=== PATIENT | male | born 1960 | race American Indian/Alaskan Native ===

== ENCOUNTER 2021-12-01 16:01 | Observation (INO) | payer MEDICARE ==
[2021-12-01] MEDS ORDERED: BUTALB/ACETAMINOPHEN/CAFFEINE TAB PO ONE (17:32)
[2021-12-01] MEDS ORDERED: fentaNYL 100 MCG/2 ML INJ IV ONE (17:32)
[2021-12-01] MEDS ORDERED: METOCLOPRAMIDE 10 MG/2 ML INJ IV ONE (17:32)
[2021-12-01] MEDS ORDERED: MECLIZINE 25 MG TAB PO ONE (17:33)
--- NOTE | 2021-12-01 17:46 | Emergency Department Report ---
HPI - HPI HPI: Room 18 Patient is a 61-year-old male present with a chief complaint of headache nausea vomiting. Patient states for the past 2.5 days he has had a constant headache and intractable nausea vomiting. Patient denies any preceding trauma. Patient states his headache was frontal initially but now has become occipital. Patient denies abdominal pain. Patient states his last bowel movement occurred ye sterday and was within normal limits. Patient complains of some chest discomfort when he coughs but currently denies chest discomfort. Patient states she has had dizziness intermittently. Patient currently gives his headache a score of 10/10. Patient denies preceding trauma. Patient states approximate 4 to 5 years ago he would have frequent headaches (every other week) but that has since improved. Patient states he's never seen a neurologist about his headaches. <KYRA ONEAL - Last Filed: 12/01/21 19:21> <LAI ENRIQUEZ - Last Filed: 12/01/21 20:39> - General Chief Complaint: Headache Time Seen by Provider: 12/01/21 17:21 ED Past Medical Hx - Past Medical History Hx Hypertension: Yes Hx Diabetes: Yes Additional medical history: Back pain - Surgical History Additional Surgical History: Back surgery, knee surgery, left hand surgery - Family History Family history: no significant - Social History Smoking Status: Never Smoker Substance Use Type: None (Denies illicit drug use), Alcohol (Rarely) <KYRA ONEAL - Last Filed: 12/01/21 19:21> <LAI ENRIQUEZ - Last Filed: 12/01/21 20:39> - Medications Home Medications: Home Medications Medication Instructions Recorded Confirmed Last Taken Type AtorvaSTATin [Lipitor] 20 mg PO DAILY 03/28/15 12/01/21 11/28/21 History Fluticasone [Flonase] 1 spray NS QDAY 03/28/15 12/01/21 11/28/21 History Montelukast Sodium [Singulair] 10 mg PO QDAY 03/28/15 12/01/21 11/28/21 History Tadalafil [Cialis] 2.5 mg PO QDAY 03/28/15 03/28/15 11/28/21 History Amlodipine Besylate/Benazepril 5 - 10 mg PO QDAY 12/01/21 12/01/21 11/28/21 History [Lotrel 5-10 mg] Butalb/Acetamin/Caff 50-325-40 2 tab PO Q8HR PRN #20 tablet 12/01/21 Unknown Rx [Fioricet 50-325-40] Insulin Glargine [Lantus VIAL] 30 units SUB-Q QHS 12/01/21 12/01/21 11/28/21 History Januvia 50 mg PO QDAY 12/01/21 12/01/21 11/28/21 History Meloxicam [Mobic] 15 mg PO QDAY 12/01/21 12/01/21 11/28/21 History Metoclopramide [Reglan] 10 mg PO TID #20 tab 12/01/21 Unknown Rx Naproxen 500 mg PO BID 12/01/21 12/01/21 11/28/21 History Rosuvastatin Calcium 20 mg PO QDAY 12/01/21 12/01/21 11/28/21 History traMADoL [Ultram 50 MG tab] 50 mg PO QDAY 12/01/21 12/01/21 11/28/21 History ED Review of Systems ROS: Stated complaint: VERTIGO,NAUSEA,HEADACHE,HYPERGLYCEMIA Other details as noted in HPI Constitutional: denies: fever Eyes: denies: eye pain ENT: denies: throat pain Respiratory: cough Cardiovascular: chest pain Endocrine: no symptoms reported Gastrointestinal: nausea, vomiting. denies: diarrhea, constipation Genitourinary: denies: dysuria Musculoskeletal: denies: back pain Neurological: headache, vertigo <KYRA ONEAL - Last Filed: 12/01/21 19:21> ROS: Stated complaint: VERTIGO,NAUSEA,HEADACHE,HYPERGLYCEMIA Other details as noted in HPI <LAI ENRIQUEZ - Last Filed: 12/01/21 20:39> Physical Exam - Physical Exam Vital Signs: Vital Signs 12/01/21 12/01/21 12/01/21 16:07 17:06 17:11 Temperature 99.4 F Pulse Rate 96 H 85 Respiratory 16 16 12 Rate Blood Pressure 181/93 [Left] O2 Sat by Pulse 97 98 99 Oximetry 12/01/21 17:14 Temperature Pulse Rate 83 Respiratory 12 Rate Blood Pressure 146/92 [Left] O2 Sat by Pulse 99 Oximetry Physical Exam: GENERAL: The patient is well-developed well-nourished male lying on stretcher not appearing to be in acute distress. [] HEENT: Normocephalic. Atraumatic. Extraocular motions are intact. Patient has moist mucous membranes. No nystagmus NECK: Supple. No meningitic signs are noted. Trachea midline CHEST/LUNGS: Clear to auscultation. There is no respiratory distress noted. HEART/CARDIOVASCULAR: Regular. There is no tachycardia. There is no gallop rub or murmur. ABDOMEN: Abdomen is soft, nontender. Patient has normal bowel sounds. There is no abdominal distention. SKIN: There is no rash. There is no edema. There is no diaphoresis. NEURO: The patient is awake, alert, and oriented. The patient is cooperative. The patient has no focal neurologic deficits. The patient has normal speech. Cranial nerves II through XII grossly intact. No dysmetria noted with [id number] bilaterally. GCS 15 MUSCULOSKELETAL: There is no evidence of acute injury. <KYRA ONEAL - Last Filed: 12/01/21 19:21> - Physical Exam Vital Signs: Vital Signs 12/01/21 12/01/21 12/01/21 16:07 17:06 17:11 Temperature 99.4 F Pulse Rate 96 H 85 Respiratory 16 16 12 Rate Blood Pressure Blood Pressure 181/93 [Left] O2 Sat by Pulse 97 98 99 Oximetry 12/01/21 12/01/21 12/01/21 17:14 17:16 17:30 Temperature Pulse Rate 83 88 85 Respiratory 12 17 18 Rate Blood Pressure 154/134 Blood Pressure 146/92 [Left] O2 Sat by Pulse 99 97 99 Oximetry 12/01/21 12/01/21 12/01/21 17:46 18:00 18:26 Temperature Pulse Rate 88 82 Respiratory 16 16 Rate Blood Pressure 154/134 163/98 163/98 Blood Pressure [Left] O2 Sat by Pulse 97 98 96 Oximetry 12/01/21 12/01/21 12/01/21 18:30 18:46 19:25 Temperature 98.5 F Pulse Rate 85 88 76 Respiratory 17 14 15 Rate Blood Pressure 163/98 163/98 Blood Pressure 160/98 [Left] O2 Sat by Pulse 97 98 96 Oximetry <LAI ENRIQUEZ - Last Filed: 12/01/21 20:39> ED Course Vital Signs 12/01/21 12/01/21 12/01/21 16:07 17:06 17:11 Temperature 99.4 F Pulse Rate 96 H 85 Respiratory 16 16 12 Rate Blood Pressure 181/93 [Left] O2 Sat by Pulse 97 98 99 Oximetry 12/01/21 17:14 Temperature Pulse Rate 83 Respiratory 12 Rate Blood Pressure 146/92 [Left] O2 Sat by Pulse 99 Oximetry - Reevaluation(s) Reevaluation #1: 12/01/21 19:16 Patient states headache has improved significantly status post medication. Patient updated on CT results. Awaiting labs <KYRA ONEAL - Last Filed: 12/01/21 19:21> Vital Signs 12/01/21 12/01/21 12/01/21 16:07 17:06 17:11 Temperature 99.4 F Pulse Rate 96 H 85 Respiratory 16 16 12 Rate Blood Pressure Blood Pressure 181/93 [Left] O2 Sat by Pulse 97 98 99 Oximetry 12/01/21 12/01/21 12/01/21 17:14 17:16 17:30 Temperature Pulse Rate 83 88 85 Respiratory 12 17 18 Rate Blood Pressure 154/134 Blood Pressure 146/92 [Left] O2 Sat by Pulse 99 97 99 Oximetry 12/01/21 12/01/21 12/01/21 17:46 18:00 18:26 Temperature Pulse Rate 88 82 Respiratory 16 16 Rate Blood Pressure 154/134 163/98 163/98 Blood Pressure [Left] O2 Sat by Pulse 97 98 96 Oximetry 12/01/21 12/01/21 12/01/21 18:30 18:46 19:25 Temperature 98.5 F Pulse Rate 85 88 76 Respiratory 17 14 15 Rate Blood Pressure 163/98 163/98 Blood Pressure 160/98 [Left] O2 Sat by Pulse 97 98 96 Oximetry <LAI ENRIQUEZ - Last Filed: 12/01/21 20:39> ED Medical Decision Making - EKG Data -: EKG Interpreted by Me EKG shows normal: sinus rhythm Rate: normal - EKG Data When compared to previous EKG there are: previous EKG unavailable Interpretation: other (No ischemic changes seen) - Radiology Data Radiology results: report reviewed (Chest x-ray, CT head), image reviewed (Chest x-ray, CT head) interpreted by me: Chest x-ray-no definite focal infiltrate, no pneumothorax [address] [address] XRay Report Signed Patient: VIET MOYER MR#: [id number] : 1960 Acct:[id number] Age/Sex: 61 / M ADM Date: 12/01/21 Loc: ED Attending Dr: Ordering Physician: KYRA ONEAL MD Date of Service: 12/01/21 Procedure(s): XR chest 1V ap Accession Number(s): [id number] cc: KYRA ONEAL MD Fluoro Time In Minutes: CHEST 1 VIEW INDICATION / CLINICAL INFORMATION: Chest discomfort, cough. FINDINGS: SUPPORT DEVICES: None. HEART / MEDIASTINUM: No significant abnormality. LUNGS / PLEURA: No significant pulmonary or pleural abnormality. No pneumothorax. ADDITIONAL FINDINGS: No significant additional findings. IMPRESSION: 1. No acute findings. Signer Name: Ashwin Chaudhari MD Signed: 12/01/2021 5:59 PM Workstation Name: [id number] Transcribed By: BC Dictated By: Ashwin Chaudhari MD Electronically Authenticated By: Ashwin Chaudhari MD Signed Date/Time: 12/01/211758 DD/ 57 TD/TT: [address] [address] Cat Scan Report Signed Patient: VIET MOYER MR#: [id number] : 1960 Acct:[id number] Age/Sex: 61 / M ADM Date: 12/01/21 Loc: ED Attending Dr: Ordering Physician: KYRA ONEAL MD Date of Service: 12/01/21 Procedure(s): CT head/brain wo con Accession Number(s): [id number] cc: KYRA ONEAL MD CT BRAIN: 12/01/2021 INDICATION / CLINICAL INFORMATION: Headache, dizziness. COMPARISON: None available. FINDINGS: BRAIN/INTRACRANIAL STRUCTURES: Unenhanced CT images of the brain demonstrate no evidence of acute abnormality. Ventricles and sulci are normal in size and shape for a patient of this age. There is no evidence of acute ischemic injury, hemorrhage, or mass. There are no abnormal extra- axial fluid collections. Atherosclerotic vascular calcifications are present in the distal internal carotid arteries and vertebral arteries. EXTRACRANIAL STRUCTURES: Unremarkable. IMPRESSION: No acute abnormality. All CT scans at this location are performed using dose reduction to ALARA by means of automated exposure control. Signer Name: Steve Adams MD Signed: 12/01/2021 7:06 PM Workstation Name: [id number] Transcribed By: IRIS Dictated By: Steve Adams MD Electronically Authenticated By: Steve Adams MD Signed Date/Time: 12/01/211905 DD/ 05 TD/TT: - Differential Diagnosis Migraine, intracranial mass, ICH <KYRA ONEAL - Last Filed: 12/01/21 19:21> - Lab Data Result diagrams: 12/01/21 18:39 12/01/21 18:39 - Medical Decision Making CBC chemistry unremarkable with exception of mild hyperglycemia. Troponin negative. Patient is discharged home. I reviewed chest radiograph impression no acute findings. CT brain without contrast no acute abnormality according to radiology report <LAI ENRIQUEZ - Last Filed: 12/01/21 20:39> Critical care attestation.: If time is entered above; I have spent that time in minutes in the direct care of this critically ill patient, excluding procedure time. <KYRA ONEAL - Last Filed: 12/01/21 19:21> Critical care attestation.: If time is entered above; I have spent that time in minutes in the direct care of this critically ill patient, excluding procedure time. <LAI ENRIQUEZ - Last Filed: 12/01/21 20:39> ED Disposition Is pt being admited?: No Does the pt Need Aspirin: No <KYRA ONEAL - Last Filed: 12/01/21 19:21> Is pt being admited?: No Does the pt Need Aspirin: No <LAI ENRIQUEZ - Last Filed: 12/01/21 20:39> Clinical Impression: Headache Disposition: 01 HOME / SELF CARE / HOMELESS Condition: Stable Instructions: General Headache Without Cause, Recurrent Migraine Headache Additional Instructions: Return to the emergency department should you develop worsening symptoms, inability to tolerate food or liquids, high fever or any other concerns Prescriptions: Butalb/Acetamin/Caff 50-325-40 [Fioricet 50-325-40] 2 tab PO Q8HR PRN #20 tablet PRN Reason: Headache Metoclopramide [Reglan] 10 mg PO TID #20 tab Referrals: PRIMARY CARE, [Referring] - 3-5 Days URBANO ARECHIGA MD [Staff Physician] - 3-5 Days (Dr. Arechiga is a neurologist. Please follow-up with him for further evaluation)
--- NOTE | 2021-12-01 18:03 | XRay Report ---
CHEST 1 VIEW INDICATION / CLINICAL INFORMATION: Chest discomfort, cough. FINDINGS: SUPPORT DEVICES: None. HEART / MEDIASTINUM: No significant abnormality. LUNGS / PLEURA: No significant pulmonary or pleural abnormality. No pneumothorax. ADDITIONAL FINDINGS: No significant additional findings. IMPRESSION: 1. No acute findings. Signer Name: Ashwin Chaudhari MD Signed: 12/01/2021 5:59 PM Workstation Name: [id number]
--- NOTE | 2021-12-01 19:11 | Cat Scan Report ---
CT BRAIN: 12/01/2021 INDICATION / CLINICAL INFORMATION: Headache, dizziness. COMPARISON: None available. FINDINGS: BRAIN/INTRACRANIAL STRUCTURES: Unenhanced CT images of the brain demonstrate no evidence of acute abn ormality. Ventricles and sulci are normal in size and shape for a patient of this age. There is no evidence of acute ischemic injury, hemorrhage, or mass. There are no abnormal extra-axial fluid collections. Atherosclerotic vascular calcifications are present in the distal internal carotid arteries and verte bral arteries. EXTRACRANIAL STRUCTURES: Unremarkable. IMPRESSION: No acute abnormality. All CT scans at this location are performed using dose reduction to ALARA by means of automated expos ure control. Signer Name: Steve Adams MD Signed: 12/01/2021 7:06 PM Workstation Name: [id number]
[2021-12-01 19:25] LABS: Basophils % (Auto) 0.4 % (0.0-1.8); Hematocrit 44.5 % (35.5-45.6); Hemoglobin 14.8 gm/dl (11.8-15.2); Lymphocytes # (Auto) 2.6 K/mm3 (1.2-5.4); Lymphocytes % (Auto) 25.2 % (13.4-35.0); Mean Corpuscular HGB Conc 33 % (32-34); Mean Corpuscular Volume 89 fl (84-94); Monocytes # (Auto) 0.5 K/mm3 (0.0-0.8); Monocytes % (Auto) 4.4 % (0.0-7.3); Platelet Count 270 K/mm3 (140-440); Red Blood Count 5.02 M/mm3 (3.65-5.03)
[2021-12-01 19:39] LABS: Creatine Kinase MB 2.1 ng/mL (0.0-4.0)
[2021-12-01 19:40] LABS: BUN/Creatinine Ratio 16; Blood Urea Nitrogen 13 mg/dL (9-20); Hemolysis Index 7
[2021-12-01] MEDS ORDERED: traMADol 50 MG TAB PO PRN (21:56)
[2021-12-01] MEDS ORDERED: NITROGLYCERIN 0.4 MG TAB SUBL SL PRN (21:56)
[2021-12-01] MEDS ORDERED: MORPHINE 2 MG/1 ML INJ IV PRN ×2 (21:56)
[2021-12-01] MEDS ORDERED: ACETAMINOPHEN 325 MG TAB PO PRN ×2 (21:56)
[2021-12-01] MEDS ORDERED: MAGNESIUM HYDROXIDE (MOM) ORAL LIQD UDC PO PRN ×2 (21:56)
[2021-12-01] MEDS ORDERED: DEXTROSE 50% IN WATER (25GM) 50 ML SYRINGE IV PRN (21:56)
[2021-12-01] MEDS ORDERED: MORPHINE 4 MG/1 ML INJ IV PRN (21:56)
[2021-12-01] MEDS ORDERED: PROMETHAZINE 25 MG RECT SUPP PR PRN (21:56)
[2021-12-01] MEDS ORDERED: METOCLOPRAMIDE 10 MG TAB PO PRN (21:56)
[2021-12-01] MEDS ORDERED: ONDANSETRON 4 MG/2 ML INJ IV PRN ×2 (21:56)
--- NOTE | 2021-12-01 22:11 | History and Physical Report ---
History of Present Illness Date of examination: 12/01/21 Date of admission: 12/01/2021 Chief complaint: Chest Pain Nausea and Vomiting History of present illness: 31-year-old -French male with known history of hypertension and diabetes mellitus presenting to the emergency room today complaining of headache, nausea and vomiting and chest pain. Headache was said to have been ongoing for the past 3 days and has been having nausea and vomiting with some vertigo. He denies any diaphoresis. Chest pain however has been substernal and left-sided. There has been no radiation. And headache. Is intermittent and feels sharp. No known relieving or exacerbating factor. Headache has been initially frontal and later proceeded to the occipital region of his head. Work-up in the emergency room today, CT scan of the head, chest x-ray, troponin and other labs were unremarkable except for hyperglycemia of 304. Patient is being admitted with intractable nausea and vomiting, chest pain and headache. Past History Past Medical History: diabetes, hypertension, other (Back Pain) Past Surgical History: Other ( Back surgery, knee surgery, left hand surgery) Social history: alcohol abuse Family history: no significant family history Medications and Allergies Allergies Allergy/AdvReac Type Severity Reaction Status Date / Time No Known Allergies Allergy Unverified 12/01/21 17:18 Home Medications Medication Instructions Recorded Confirmed Last Taken Type AtorvaSTATin [Lipitor] 20 mg PO DAILY 03/28/15 12/01/21 11/28/21 History Fluticasone [Flonase] 1 spray NS QDAY 03/28/15 12/01/21 11/28/21 History Montelukast Sodium [Singulair] 10 mg PO QDAY 03/28/15 12/01/21 11/28/21 History Tadalafil [Cialis] 2.5 mg PO QDAY 03/28/15 03/28/15 11/28/21 History Amlodipine Besylate/Benazepril 5 - 10 mg PO QDAY 12/01/21 12/01/21 11/28/21 History [Lotrel 5-10 mg] Butalb/Acetamin/Caff 50-325-40 2 tab PO Q8HR PRN #20 tablet 12/01/21 Unknown Rx [Fioricet 50-325-40] Insulin Glargine [Lantus VIAL] 30 units SUB-Q QHS 12/01/21 12/01/21 11/28/21 H istory Januvia 50 mg PO QDAY 12/01/21 12/01/21 11/28/21 History Meloxicam [Mobic] 15 mg PO QDAY 12/01/21 12/01/21 11/28/21 History Metoclopramide [Reglan] 10 mg PO TID #20 tab 12/01/21 Unknown Rx Naproxen 500 mg PO BID 12/01/21 12/01/21 11/28/21 History Rosuvastatin Calcium 20 mg PO QDAY 12/01/21 12/01/21 11/28/21 History traMADoL [Ultram 50 MG tab] 50 mg PO QDAY 12/01/21 12/01/21 11/28/21 History Review of Systems Constitutional: no fever, no chills Ears, nose, mouth and throat: no nasal congestion, no sore throat Cardiovascular: chest pain, no palpitations Respiratory: no cough, no shortness of breath Gastrointestinal: nausea, vomiting, no abdominal pain, no diarrhea Genitourinary Male: no dysuria, no hematuria, no flank pain Musculoskeletal: no neck pain, no low back pain Integumentary: no rash, no pruritis Neurological: vertigo, headaches, no confusion Psychiatric: no anxiety, no depression Endocrine: no polyphagia, no polydipsia, no polyuria, no nocturia Exam - Constitutional Vitals: Temp Pulse Resp BP Pulse Ox 98.5 F 75 16 142/99 96 12/01/21 19:25 12/01/21 21:30 12/01/21 21:30 12/01/21 21:30 12/01/21 21:30 General appearance: Present: no acute distress, well-nourished - EENT Eyes: Present: PERRL, EOM intact. Absent: scleral icterus ENT: hearing intact, clear oral mucosa, dentition normal - Neck Neck: Present: supple, normal ROM - Respiratory Respiratory effort: normal Respiratory: bilateral: CTA - Cardiovascular Rhythm: regular Heart Sounds: Present: S1 & S2. Absent: gallop, systolic murmur, diastolic murmur, rub, click - Extremities Extremities: no ischemia, pulses intact, pulses symmetrical, No edema, normal temperature, normal color, Full ROM Peripheral Pulses: within normal limits - Abdominal General gastrointestinal: Present: soft, non-tender, non-distended, normal bowel sounds. Absent: mass - Integumentary Integumentary: Present: clear, warm, dry, normal turgor. Absent: rash - Musculoskeletal Musculoskeletal: strength equal bilaterally - Psychiatric Psychiatric: appropriate mood/affect, intact judgment & insight, memory intact, cooperative - Neurologic Neurologic: CNII-XII intact, no focal deficits, moves all extremities HEART Score - HEART Score History: Moderately suspicious EKG: Non-specific Age: 45-65 Risk factors: 1-2 risk factors Troponin: Troponin T < 0.010 ng/mL (0.00-0.029) 12/01/21 18:39 Troponin: < normal limit HEART Score: 4 Results - Labs CBC & Chem 7: 12/01/21 18:39 12/01/21 18:39 Labs: Abnormal lab results 12/01/21 Range/Units 18:39 Glucose 304 H (75-100) mg/dL Assessment and Plan - Patient Problems (1) Headache Current Visit: Yes Status: Acute Plan to address problem: Etiology is unclear. Patient has had associated vertigo. We will schedule patient for MRI of the brain. Work-up so far including CT scan of the brain has been unremarkable. Patient started on daily aspirin. We will place consult to neurology for evaluation. (2) Acute coronary syndrome Current Visit: Yes Status: Acute Plan to address problem: We will check serial cardiac enzymes. Patient placed on telemetry. We will start on daily aspirin, sublingual nitroglycerin and IV morphine as needed for chest pain. We will request cardiology evaluation. (3) Hypertension Current Visit: Yes Status: Acute Plan to address problem: We will resume routine home medications and monitor vital signs closely. (4) Intractable nausea and vomiting Current Visit: Yes Status: Acute Plan to address problem: Patient placed on antiemetic. Nausea and vomiting may be related to gastroparesis. (5) Hyperglycemia Current Visit: Yes Status: Acute Plan to address problem: Patient placed on sliding scale insulin. We will monitor Accu-Cheks closely. (6) DVT prophylaxis Current Visit: Yes Status: Acute Plan to address problem: Patient placed on subcutaneous heparin. (7) Full code status Current Visit: Yes Status: Acute Plan to address problem: Patient is full code.
[2021-12-01] MEDS ORDERED: DEXTROSE 10% *Hypoglycemia IV PRN (22:15)
[2021-12-01] MEDS: INSULIN LISPRO 100 UNIT/ML SUB-Q SCH (22:52)
[2021-12-02 05:41] LABS: Hematocrit 40.6 % (35.5-45.6); Hemoglobin 13.5 gm/dl (11.8-15.2); Mean Corpuscular HGB Conc 33 % (32-34); Mean Corpuscular Volume 89 fl (84-94); Platelet Count 242 K/mm3 (140-440); Red Blood Count 4.54 M/mm3 (3.65-5.03); Red Cell Distribution Width 13.8 % (13.2-15.2)
[2021-12-02 05:53] LABS: BUN/Creatinine Ratio 20; Blood Urea Nitrogen 18 mg/dL (9-20); Calcium 8.8 mg/dL (8.4-10.2); Hemolysis Index 16
[2021-12-02] MEDS: HEPARIN 5,000 UNIT/1 ML VIAL SUB-Q SCH ×3 (05:58→21:45)
[2021-12-02 06:38] LABS: Basophils % (Manual) 0 % (0.0-1.8); Eosinophils % (Manual) 0 % (0.0-4.3); Total Cells Counted 100
[2021-12-02 06:39] LABS: Anisocytosis 1+; Platelet Estimate Consistent w Auto; Toxic Granulation Rare
[2021-12-02] MEDS: INSULIN LISPRO 100 UNIT/ML SUB-Q SCH ×4 (08:57→22:48)
[2021-12-02] MEDS: ASPIRIN EC 325 MG TAB PO SCH (09:02)
--- NOTE | 2021-12-02 10:07 | Consultation ---
History of Present Illness Consult date: 12/02/21 Requesting physician: RAUL VILLARREAL Consult reason: chest pain History of present illness: 61-year-old male with hypertension diabetes cholesterol history of migraine. Most episodes of headaches would last less than a day. But is been having 4 days of recurrent and persistent headache. Without syncope. Has some nausea and vomiting appearing with the vomiting but has some chest discomfort. Patient has periods of time where he does not eat regularly. Denies any fever chills or syncope. Has no chest pain this morning. Patient is able to exert himself regularly without issues a few weeks ago. Past History Past Medical History: diabetes, hypertension, hyperlipidemia, seizures, other (Back Pain) Past Surgical History: Other ( Back surgery, knee surgery, left hand surgery) Social history: alcohol abuse Family history: no significant family history Medications and Allergies Allergies Allergy/AdvReac Type Severity Reaction Status Date / Time No Known Allergies Allergy Unverified 12/01/21 17:18 Home Medications Medication Instructions Recorded Confirmed Last Taken Type AtorvaSTATin [Lipitor] 20 mg PO DAILY 03/28/15 12/01/21 11/28/21 History Fluticasone [Flonase] 1 spray NS QDAY 03/28/15 12/01/21 11/28/21 History Montelukast Sodium [Singulair] 10 mg PO QDAY 03/28/15 12/01/21 11/28/21 History Tadalafil [Cialis] 2.5 mg PO QDAY 03/28/15 12/02/21 11/28/21 History Amlodipine Besylate/Benazepril 5 - 10 mg PO QDAY 12/01/21 12/01/21 11/28/21 History [Lotrel 5-10 mg] Butalb/Acetamin/Caff 50-325-40 2 tab PO Q8HR PRN #20 tablet 12/01/21 Unknown Rx [Fioricet 50-325-40] Insulin Glargine [Lantus VIAL] 30 units SUB-Q QHS 12/01/21 12/01/21 11/28/21 History Januvia 50 mg PO QDAY 12/01/21 12/01/21 11/28/21 History Meloxicam [Mobic] 15 mg PO QDAY 12/01/21 12/01/21 11/28/21 History Metoclopramide [Reglan] 10 mg PO TID #20 tab 12/01/21 Unknown Rx Naproxen 500 mg PO BID 12/01/21 12/01/21 11/28/21 History Rosuvastatin Calcium 20 mg PO QDAY 12/01/21 12/01/21 11/28/21 History traMADoL [Ultram 50 MG tab] 50 mg PO QDAY 12/01/21 12/01/21 11/28/21 History Active Meds: Active Medications Acetaminophen (Acetaminophen 325 Mg Tab) 650 mg PO Q4H PRN PRN Reason: Pain MILD(1-3)/Fever >100.5/RIZO Last Admin: 12/02/21 08:56 Dose: 650 mg Aspirin (Aspirin Ec 325 Mg Tab) 325 mg PO QDAY [facility] Last Admin: 12/02/21 09:02 Dose: 325 mg Atorvastatin Calcium (Atorvastatin 40 Mg Tab) 40 mg PO QHS [facility] Last Admin: 12/01/21 22:52 Dose: 40 mg Bisacodyl (Bisacodyl 10 Mg Rect Supp) 10 mg FL QDAY PRN PRN Reason: Constipation Dextrose (Dextrose 10% *Hypoglycemia) 0 ml IV DIRECT PRN; Protocol PRN Reason: Hypoglycemia Heparin Sodium (Porcine) (Heparin 5,000 Unit/1 Ml Vial) 5,000 unit SUB-Q Q8HR [facility] Last Admin: 12/02/21 05:58 Dose: 5,000 unit Insulin Human Lispro (Insulin Lispro 100 Unit/Ml) 0 unit SUB-Q ACHS [facility]; Protocol Last Admin: 12/02/21 08:57 Dose: 2 unit Magnesium Hydroxide (Magnesium Hydroxide (Mom) Oral Liqd Udc) 30 ml PO Q4H PRN PRN Reason: Constipation Metoclopramide HCl (Metoclopramide 10 Mg Tab) 10 mg PO Q6H PRN PRN Reason: Nausea And Vomiting Last Admin: 12/02/21 08:56 Dose: 10 mg Morphine Sulfate (Morphine 2 Mg/1 Ml Inj) 2 mg IV Q4H PRN PRN Reason: Pain, Moderate (4-6) Morphine Sulfate (Morphine 4 Mg/1 Ml Inj) 4 mg IV Q4H PRN PRN Reason: Pain , Severe (7-10) Morphine Sulfate (Morphine 2 Mg/1 Ml Inj) 2 mg IV Q5MIN PRN PRN Reason: Chest Pain unrelieved by NTG Nitroglycerin (Nitroglycerin 0.4 Mg Tab Subl) 0.4 mg SL Q5M PRN PRN Reason: Chest Pain Ondansetron HCl (Ondansetron 4 Mg/2 Ml Inj) 4 mg IV Q8H PRN PRN Reason: Nausea And Vomiting Promethazine HCl (Promethazine 25 Mg Rect Supp) 25 mg FL Q6H PRN PRN Reason: Nausea And Vomiting Sodium Chloride (Sodium Chloride 0.9% 10 Ml Flush Syringe) 10 ml IV BID OVIDIO Last Admin: 12/02/21 09:02 Dose: 10 ml Sodium Chloride (Sodium Chloride 0.9% 10 Ml Flush Syringe) 10 ml IV PRN PRN PRN Reason: LINE FLUSH Tramadol HCl (Tramadol 50 Mg Tab) 50 mg PO Q6H PRN PRN Reason: Pain, Moderate (4-6) Last Admin: 12/02/21 06:49 Dose: 50 mg Review of Systems All systems: negative (As per the HPI) Physical Examination Vital Signs Temp Pulse Resp BP Pulse Ox 99.4 F 96 H 16 181/93 97 12/01/21 16:07 12/01/21 16:07 12/01/21 16:07 12/01/21 16:07 12/01/21 16:07 General appearance: well-nourished, other (Closing eyes) HEENT: Positive: PERRL, Mucus Membranes Moist Neck: Positive: neck supple, trachea midline Cardiac: Positive: Reg Rate and Rhythm, S1/S2. Negative: Audible Murmur Lungs: Positive: clear to auscultation, Normal Breath Sounds Neuro: Positive: Grossly Intact Abdomen: Positive: Soft, Active Bowel Sounds. Negative: Tender, Distended Male genitourinary: Positive: normal Skin: Positive: Clear Incision: Cardiac Cath Site Musculoskeletal: No Pain, Normal Range of Motion Extremities: Present: normal. Absent: edema Results 12/02/21 05:24 12/02/21 05:24 Cardiac Enzymes 12/01/21 Range/Units 18:39 CK-MB (CK-2) 2.1 (0.0-4.0) ng/mL CBC 12/01/21 12/02/21 Range/Units 18:39 05:24 WBC 10.2 9.8 (4.5-11.0) K/mm3 RBC 5.02 4.54 (3.65-5.03) M/mm3 Hgb 14.8 13.5 (11.8-15.2) gm/dl Hct 44.5 40.6 (35.5-45.6) % Plt Count 270 242 (140-440) K/mm3 Lymph # (Auto) 2.6 Traffic Observer (1.2-5.4) K/mm3 [place] # (Auto) 0.5 (0.0-0.8) K/mm3 Eos # (Auto) 0.0 (0.0-0.4) K/mm3 Baso # (Auto) 0.0 (0.0-0.1) K/mm3 Comprehensive Metabolic Panel 12/01/21 12/02/21 Range/Units 18:39 05:24 Sodium 137 134 L (137-145) mmol/L Potassium 3.9 4.3 (3.6-5.0) mmol/L Chloride 99.7 99.8 (98-107) mmol/L Carbon Dioxide 24 25 (22-30) mmol/L BUN 13 18 (9-20) mg/dL Creatinine 0.8 0.9 (0.8-1.3) mg/dL Glucose 304 H 363 H (75-100) mg/dL Calcium 9.0 8.8 (8.4-10.2) mg/dL EKG interpretations - Telemetry EKG Rhythm: Sinus Rhythm (Sinus rhythm nonspecific ST-T) Assessment and Plan 61-year-old male with hypertension diabetes cholesterol atypical chest pain with vomiting. Negative troponin. No change in EKG. Patient has intractable nausea vomiting with persistent headache despite medical management requiring IV pain medication and IV medications. Stable from a cardiovascular point of view outpatient evaluation. We will see as needed - Patient Problems (1) Diabetes 1.5, managed as type 1 Current Visit: Yes Status: Chronic (2) Chest pain Current Visit: Yes Status: Acute Qualifiers: Chest pain type: unspecified Qualified Code(s): R07.9 - Chest pain, unspecified (3) Headache Current Visit: Yes Status: Acute (4) Hyperglycemia Current Visit: Yes Status: Acute (5) Hypertension Current Visit: Yes Status: Acute (6) Intractable nausea and vomiting Current Visit: Yes Status: Acute (7) Vertigo Current Visit: Yes Status: Acute
--- NOTE | 2021-12-02 11:37 | Progress Note ---
Assessment and Plan Assessment and plan: 61-year-old -Al[place] male with known history of hypertension and diabetes mellitus presenting to the emergency room today complaining of headache, nausea and vomiting and chest pain. Atypical chest pain Headache Accelerated hypertension Intractable nausea vomiting Diabetes mellitus type 2, uncontrolled 12/02/2021. Patient with negative troponin and no EKG changes. Cardiology has cleared the patient from a cardiovascular point of view. I suspect patient's headache may be related to accelerated hypertension. We will restart home medications and adjust as needed. History Interval history: No new issues overnight. Hospitalist Physical - Constitutional Vitals: Temp Pulse Resp BP Pulse Ox 97.4 F L 71 16 160/91 98 12/02/21 08:14 12/02/21 08:14 12/02/21 08:14 12/02/21 08:14 12/02/21 08:14 General appearance: Present: well-nourished, other (Closing eyes) - EENT Eyes: Present: PERRL, EOM intact ENT: hearing intact, clear oral mucosa, dentition normal - Neck Neck: Present: supple, normal ROM - Respiratory Respiratory effort: normal Respiratory: bilateral: CTA - Cardiovascular Rhythm: regular Heart Sounds: Present: S1 & S2. Absent: gallop, rub - Extremities Extremities: no ischemia, No edema, Full ROM - Abdominal General gastrointestinal: soft, non-tender, non-distended, normal bowel sounds - Integumentary Integumentary: Present: clear, warm, dry - Neurologic Neurologic: CNII-XII intact, moves all extremities HEART Score - HEART Score EKG: Non-specific Age: 45-65 Risk factors: 1-2 risk factors Troponin: Troponin T < 0.010 ng/mL (0.00-0.029) 12/02/21 05:24 Troponin: < normal limit Results - Labs CBC & Chem 7: 12/02/21 05:24 12/02/21 05:24 Labs: Laboratory Last Values WBC 9.8 K/mm3 (4.5-11.0) 12/02/21 05:24 RBC 4.54 M/mm3 (3.65-5.03) 12/02/21 05:24 Hgb 13.5 gm/dl (11.8-15.2) 12/02/21 05:24 Hct 40.6 % (35.5-45.6) 12/02/21 05:24 MCV 89 fl (84-94) 12/02/21 05:24 MCH 30 pg (28-32) 12/02/21 05:24 MCHC 33 % (32-34) 12/02/21 05:24 RDW 13.8 % (13.2-15.2) 12/02/21 05:24 Plt Count 242 K/mm3 (140-440) 12/02/21 05:24 Lymph % (Auto) 25.2 % (13.4-35.0) 12/01/21 18:39 [place] % (Auto) 4.4 % (0.0-7.3) 12/01/21 18:39 Eos % (Auto) 0.0 % (0.0-4.3) 12/01/21 18:39 Baso % (Auto) 0.4 % (0.0-1.8) 12/01/21 18:39 Lymph # (Auto) Vacuum Forming Machine Operator 12/02/21 05:24 [place] # (Auto) 0.5 K/mm3 (0.0-0.8) 12/01/21 18:39 Eos # (Auto) 0.0 K/mm3 (0.0-0.4) 12/01/21 18:39 Baso # (Auto) 0.0 K/mm3 (0.0-0.1) 12/01/21 18:39 Add Manual Diff Complete 12/02/21 05:24 Total Counted 100 12/02/21 05:24 Seg Neutrophils % 70.0 % (40.0-70.0) 12/01/21 18:39 Seg Neuts % (Manual) 49.0 % (40.0-70.0) 12/02/21 05:24 Band Neutrophils % 0 % 12/02/21 05:24 Lymphocytes % (Manual) 49.0 % (13.4-35.0) H 12/02/21 05:24 Reactive Lymphs % (Man) 0 % 12/02/21 05:24 Monocytes % (Manual) 2.0 % (0.0-7.3) 12/02/21 05:24 Eosinophils % (Manual) 0 % (0.0-4.3) 12/02/21 05:24 Basophils % (Manual) 0 % (0.0-1.8) 12/02/21 05:24 Metamyelocytes % 0 % 12/02/21 05:24 Myelocytes % 0 % 12/02/21 05:24 Promyelocytes % 0 % 12/02/21 05:24 Blast Cells % 0 % 12/02/21 05:24 Nucleated RBC % Not Reportable 12/02/21 05:24 Seg Neutrophils # 7.1 K/mm3 (1.8-7.7) 12/01/21 18:39 Seg Neutrophils # Man 4.8 K/mm3 (1.8-7.7) 12/02/21 05:24 Band Neutrophils # 0.0 K/mm3 12/02/21 05:24 Lymphocytes # (Manual) 4.8 K/mm3 (1.2-5.4) 12/02/21 05:24 Abs React Lymphs (Man) 0.0 K/mm3 12/02/21 05:24 Monocytes # (Manual) 0.2 K/mm3 (0.0-0.8) 12/02/21 05:24 Eosinophils # (Manual) 0.0 K/mm3 (0.0-0.4) 12/02/21 05:24 Basophils # (Manual) 0.0 K/mm3 (0.0-0.1) 12/02/21 05:24 Metamyelocytes # 0.0 K/mm3 12/02/21 05:24 Myelocytes # 0.0 K/mm3 12/02/21 05:24 Promyelocytes # 0.0 K/mm3 12/02/21 05:24 Blast Cells # 0.0 K/mm3 12/02/21 05:24 WBC Morphology Not Reportable 12/02/21 05:24 Hypersegmented Neuts Not Reportable 12/02/21 05:24 Hyposegmented Neuts Not Reportable 12/02/21 05:24 Hypogranular Neuts Not Reportable 12/02/21 05:24 Smudge Cells Not Reportable 12/02/21 05:24 Toxic Granulation Rare 12/02/21 05:24 Toxic Vacuolation Not Reportable 12/02/21 05:24 Dohle Bodies Not Reportable 12/02/21 05:24 Pelger-Huet Anomaly Not Reportable 12/02/21 05:24 Mayda Rods Not Reportable 12/02/21 05:24 Platelet Estimate Consistent w auto 12/02/21 05:24 Clumped Platelets Not Reportable 12/02/21 05:24 Plt Clumps, EDTA Not Reportable 12/02/21 05:24 Large Platelets Not Reportable 12/02/21 05:24 Giant Platelets Not Reportable 12/02/21 05:24 Platelet Satelliting Not Reportable 12/02/21 05:24 Plt Morphology Comment Not Reportable 12/02/21 05:24 RBC Morphology Not Reportable 12/02/21 05:24 Dimorphic RBCs Not Reportable 12/02/21 05:24 Polychromasia Not Reportable 12/02/21 05:24 Hypochromasia Not Reportable 12/02/21 05:24 Poikilocytosis Not Reportable 12/02/21 05:24 Anisocytosis 1+ 12/02/21 05:24 Microcytosis Not Reportable 12/02/21 05:24 Macrocytosis Not Reportable 12/02/21 05:24 Spherocytes Not Reportable 12/02/21 05:24 Pappenheimer Bodies Not Reportable 12/02/21 05:24 Sickle Cells Not Reportable 12/02/21 05:24 Target Cells Not Reportable 12/02/21 05:24 Tear Drop Cells Not Reportable 12/02/21 05:24 Ovalocytes Not Reportable 12/02/21 05:24 Helmet Cells Not Reportable 12/02/21 05:24 Winters-Smiley Bodies Not Reportable 12/02/21 05:24 [place] Rings Not Reportable 12/02/21 05:24 Lakesha Cells Not Reportable 12/02/21 05:24 Bite Cells Not Reportable 12/02/21 05:24 Crenated Cell Not Reportable 12/02/21 05:24 Elliptocytes Not Reportable 12/02/21 05:24 Acanthocytes (Spur) Not Reportable 12/02/21 05:24 Rouleaux Not Reportable 12/02/21 05:24 Hemoglobin C Crystals Not Reportable 12/02/21 05:24 Schistocytes Not Reportable 12/02/21 05:24 Malaria parasites Not Reportable 12/02/21 05:24 Addi Bodies Not Reportable 12/02/21 05:24 Hem Pathologist Commnt No 12/02/21 05:24 Sodium 134 mmol/L (137-145) L 12/02/21 05:24 Potassium 4.3 mmol/L (3.6-5.0) 12/02/21 05:24 Chloride 99.8 mmol/L (98-107) 12/02/21 05:24 Carbon Dioxide 25 mmol/L (22-30) 12/02/21 05:24 Anion Gap 14 mmol/L 12/02/21 05:24 BUN 18 mg/dL (9-20) 12/02/21 05:24 Creatinine 0.9 mg/dL (0.8-1.3) 12/02/21 05:24 Estimated GFR > 60 ml/min 12/02/21 05:24 BUN/Creatinine Ratio 20 % 12/02/21 05:24 Glucose 363 mg/dL (75-100) H 12/02/21 05:24 POC Glucose 222 mg/dL (70-105) H 12/01/21 22:47 Calcium 8.8 mg/dL (8.4-10.2) 12/02/21 05:24 Total Creatine Kinase 132 units/L (55-170) 12/01/21 18:39 CK-MB (CK-2) 2.1 ng/mL (0.0-4.0) 12/01/21 18:39 CK-MB (CK-2) Rel Index 1.5 (0-4) 12/01/21 18:39 Troponin T < 0.010 ng/mL (0.00-0.029) 12/02/21 05:24 Parsons/IV: Voiding Method Urinal Active Medications - Current Medications Current Medications: Generic Name Dose Route Start Last Admin Trade Name Freq PRN Reason Stop Dose Admin Acetaminophen 650 mg 12/01/21 21:56 12/02/21 08:56 Acetaminophen 325 Mg Tab PO 650 mg Q4H PRN Administration Pain MILD(1-3)/Fever >100.5/RIZO Aspirin 325 mg 12/02/21 10:00 12/02/21 09:02 Aspirin Ec 325 Mg Tab PO 325 mg QDAY OVIDIO Administration Atorvastatin Calcium 40 mg 12/01/21 22:00 12/01/21 22:52 Atorvastatin 40 Mg Tab PO 40 mg QHS OVIDIO Administration Atorvastatin Calcium 20 mg 12/03/21 10:00 Atorvastatin 20 Mg Tab PO DAILY OVIDIO Bisacodyl 10 mg 03/19/22 21:56 Bisacodyl 10 Mg Rect Supp MO QDAY PRN Constipation Dextrose 0 ml 12/01/21 22:15 Dextrose 10% *Hypoglycemia IV DIRECT PRN Hypoglycemia Protocol Fluticasone Propionate 50 mcg 12/03/21 10:00 Fluticasone Propionate Nasal [place] 16 Gm NS QDAY [facility] Heparin Sodium (Porcine) 5,000 unit 12/02/21 06:00 12/02/21 05:58 Heparin 5,000 Unit/1 Ml Vial SUB-Q 5,000 unit Q8HR OVIDIO Administration Insulin Glargine 30 units 12/02/21 22:00 Insulin Glargine 100 Units/Ml SUB-Q QHS OVIDIO Insulin Human Lispro 0 unit 12/01/21 22:00 12/02/21 08:57 Insulin Lispro 100 Unit/Ml SUB-Q 2 unit ACHS [facility] Administration Protocol Magnesium Hydroxide 30 ml 12/01/21 21:56 Magnesium Hydroxide (Mom) Oral Liqd Udc PO Q4H PRN Constipation Metoclopramide HCl 10 mg 12/01/21 21:56 12/02/21 08:56 Metoclopramide 10 Mg Tab PO 10 mg Q6H PRN Administration Nausea And Vomiting Miscellaneous Medication 5 - 10 mg 12/03/21 10:00 Amlodipine Besylate/Benazepril [Lotrel 5-10 Mg] PO QDAY [facility] Miscellaneous Medication 50 mg 12/03/21 10:00 Januvia PO QDAY [facility] Miscellaneous Medication 20 mg 12/03/21 10:00 Rosuvastatin Calcium [Rosuvastatin Calcium] PO QDAY [facility] Montelukast Sodium 10 mg 12/03/21 10:00 Montelukast 10 Mg Tab PO QDAY [facility] Morphine Sulfate 2 mg 12/01/21 21:56 Morphine 2 Mg/1 Ml Inj IV Q4H PRN Pain, Moderate (4-6) Morphine Sulfate 4 mg 12/01/21 21:56 Morphine 4 Mg/1 Ml Inj IV Q4H PRN Pain , Severe (7-10) Morphine Sulfate 2 mg 12/01/21 21:56 Morphine 2 Mg/1 Ml Inj IV Q5MIN PRN Chest Pain unrelieved by NTG Nitroglycerin 0.4 mg 12/01/21 21:56 Nitroglycerin 0.4 Mg Tab Subl SL Q5M PRN Chest Pain Ondansetron HCl 4 mg 12/01/21 21:56 Ondansetron 4 Mg/2 Ml Inj IV Q8H PRN Nausea And Vomiting Promethazine HCl 25 mg 12/01/21 21:56 Promethazine 25 Mg Rect Supp MO Q6H PRN Nausea And Vomiting Sodium Chloride 10 ml 12/01/21 22:00 12/02/21 09:02 Sodium Chloride 0.9% 10 Ml Flush Syringe IV 10 ml BID OVIDIO Administration Sodium Chloride 10 ml 12/01/21 21:56 Sodium Chloride 0.9% 10 Ml Flush Syringe IV PRN PRN LINE FLUSH Tramadol HCl 50 mg 12/01/21 21:56 12/02/21 06:49 Tramadol 50 Mg Tab PO 50 mg Q6H PRN Administration Pain, Moderate (4-6)
[2021-12-02] MEDS: BUTALB/ACETAMINOPHEN/CAFFEINE TAB PO PRN ×2 (12:52→21:56)
[2021-12-02] MEDS: LISINOPRIL 10 MG TAB PO SCH (12:53)
[2021-12-02] MEDS: amLODIPine 5 MG TAB PO SCH (12:53)
--- NOTE | 2021-12-02 14:14 | Vascular Lab Report ---
DUPLEX DOPPLER ULTRASOUND CAROTID, BILATERAL INDICATION / CLINICAL INFORMATION: stroke. COMPARISON: None available. FINDINGS: RIGHT CAROTID: - PLAQUE ESTIMATE (%): < 50% - CCA velocity: 68 cm/sec. - ICA peak systolic velocity: 87 cm/sec. - ICA/CCA PSV Ratio: Less than 2 Right Vertebral Artery: Antegrade flow. LEFT CAROTID: - PLAQUE ESTIMATE (%): < 50% - CCA velocity: 80 cm/sec. - ICA peak systolic velocity: 96 cm/sec. - ICA/CCA PSV Ratio: Less than 2 Left Vertebral Artery: Antegrade flow. IMPRESSION: 1. Right Internal Carotid Artery: Less than 50% diameter stenosis. 2. Left Internal Carotid Artery: Less than 50% diameter stenosis. Velocity criteria are extrapolated from diameter data as defined by the Society of Radiologists in Ul trasound Consensus Conference, Radiology 2003; 229;340-346. NO STENOSIS (NORMAL) - Plaque = none; ICA PSV < 125 cm/sec; ICA/CCA PSV Ratio < 2.0 <50% STENOSIS - Plaque < 50%; ICA PSV < 125 cm/sec; ICA/CCA PSV Ratio < 2.0 50-69% STENOSIS - Plaque > 50%; ICA PSV = 125-230 cm/sec; ICA/CCA PSV Ratio = 2.0-4.0 >70% BUT <100% STENOSIS - Plaque > 50%; ICA PSV > 230 cm/sec; ICA/CCA PSV Ratio > 4.0 NEAR OCCLUSION - Plaque = visible lumen; ICA PSV = high/low/none; ICA/CCA PSV Ratio = variable TOTAL OCCLUSION - Plaque = no lumen; ICA PSV = none; ICA/CCA PSV Ratio = N/A Signer Name: Gwyn Mcneil DO Signed: 12/02/2021 2:10 PM Workstation Name: [id number]
[2021-12-02] MEDS ORDERED: INSULIN GLARGINE 100 UNITS/ML SUB-Q SCH (22:00)
[2021-12-03] MEDS: HEPARIN 5,000 UNIT/1 ML VIAL SUB-Q SCH (05:44)
--- NOTE | 2021-12-03 09:00 | Electrocardiograph Report ---
[facility] Test Date: 2021-12-01 Test Time: 18:47:26 Pat Name: VIET MOYER Department: Room: A483 1 Gender: M Mixing Machine Attendant: JENNY : 1960 Requested By: KYRA ONEAL Order Number: [id number] Reading MD: Raine Lo Measurements Intervals [place] Rate: 79 P: 47 WI: 227 QRS: 22 QRSD: 93 T: 89 QT: 382 QTc: 438 Interpretive Statements Sinus rhythm Prolonged WI interval Otherwise normal ECG No previous ECG available for comparison Electronically Signed On 12-03-2021 9:00:08 EDT by Raine Lo
--- NOTE | 2021-12-03 09:08 | Electrocardiograph Report ---
[facility] Test Date: 2021-12-02 Test Time: 07:53:26 Pat Name: VIET MOYER Department: Room: A483 1 Gender: M Forepart Rounder: ISIDRO : 1960 Requested By: STEPHANIE HAQ Order Number: [id number] Reading MD: Raine Lo Measurements Intervals [place] Rate: 67 P: 63 MO: 232 QRS: 41 QRSD: 93 T: 118 QT: 404 QTc: 428 Interpretive Statements Sinus rhythm Early R wave transition Compared to ECG 12/01/2021 18:47:26 No significant change Electronically Signed On 12-03-2021 9:07:56 EDT by Raine Lo
--- NOTE | 2021-12-03 09:12 | Electrocardiograph Report ---
[facility] Test Date: 2021-12-02 Test Time: 11:10:39 Pat Name: VIET MOYER Department: Room: A483 1 Gender: M Consultant Dietitian: ISIDRO : 1960 Requested By: STEPHANIE HAQ Order Number: [id number] Reading MD: Raine Lo Measurements Intervals [place] Rate: 65 P: 36 PA: 237 QRS: 17 QRSD: 95 T: 67 QT: 415 QTc: 432 Interpretive Statements Sinus rhythm Prolonged PA interval Nonspecific T wave abnormality Compared to ECG 12/02/2021 07:53:26 No significant change Electronically Signed On 12-03-2021 9:12:50 EDT by Raine Lo
--- NOTE | 2021-12-03 09:46 | Discharge Summary ---
Providers - Providers Date of Admission: 12/01/21 21:57 Date of discharge: 12/03/21 Attending physician: RAUL VILLARREAL 12/01/21 Consult to Cardiac Rehabilitation [CONS] Routine Reason For Exam: Phase I 12/01/21 21:57 Consult to Cardiology [CONS] Routine Consulting Provider: SHAYE CHICAS Reason For Exam: chest pain Consult to Dietitian/Nutrition [CONS] Routine Physician Instructions: Reason For Exam: Reason for Consult: Diet education Occupational Therapy Evaluate and Treat [CONS] Routine Comment: Reason For Exam: Neuro deficits Physical Therapy Evaluation and Treat [CONS] Routine Comment: Reason For Exam: Neuro deficits 12/01/21 22:02 Speech Therapy Evaluation and Treat [CONS] Routine Reason For Exam: swallow eval 12/01/21 22:20 Consult to Physician [CONS] Routine Comment: Consulting Provider: KRISSY ABAD Physician Instructions: Reason For Exam: Headache, vertigo. Rule out CVA Primary care physician: ZEB GRIFFITHS Hospitalization Reason for admission: CP Condition: Stable Hospital course: 61-year-old -[place] male with known history of hypertension and diabetes mellitus presenting to the emergency room today complaining of headache, nausea and vomiting and chest pain. The patient was admitted with diagnosis of atypical chest pain, headache, accelerated hypertension, intractable nausea vomiting and diabetes mellitus type 2. Patient was seen by cardiology in consultation. Patient with negative troponin and no EKG changes. Cardiology has cleared the patient from a cardiovascular point of view. I suspect patient's headache may be related to accelerated hypertension. Patient's blood pressure stabilized with restarting home medications. Headache resolved. CT scan of the head was found to be negative. Patient is felt to have received maximal hospital benefit and will be discharged home. Dedicated discharge time 32 minutes Disposition: 30 STILL A PATIENT Final Discharge Diagnosis (Prints w/discharge instructions): Atypical chest pain, headache, accelerated hypertension, diabetes mellitus type 2 Core Measure Documentation - Palliative Care Palliative Care/ Comfort Measures: Not Applicable - Core Measures Any of the following diagnoses?: none Exam - Constitutional Vitals: Temp Pulse Resp BP Pulse Ox 98.4 F 55 L 18 163/93 97 12/03/21 07:25 12/03/21 07:25 12/03/21 07:25 12/03/21 07:25 12/03/21 07:25 General appearance: Present: no acute distress, well-nourished - EENT Eyes: Present: PERRL ENT: hearing intact, clear oral mucosa - Neck Neck: Present: supple, normal ROM - Respiratory Respiratory effort: normal Respiratory: bilateral: CTA - Cardiovascular Heart Sounds: Present: S1 & S2. Absent: rub, click - Extremities Extremities: pulses symmetrical, No edema Peripheral Pulses: within normal limits - Abdominal General gastrointestinal: Present: soft, non-tender, non-distended, normal bowel sounds Male genitourinary: Present: normal - Integumentary Integumentary: Present: clear, warm, dry - Musculoskeletal Musculoskeletal: gait normal, strength equal bilaterally - Psychiatric Psychiatric: appropriate mood/affect, intact judgment & insight - Neurologic Neurologic: CNII-XII intact, moves all extremities Plan Activity: advance as tolerated Weight Bearing Status: Weight Bear as Tolerated Diet: diabetic Follow up with: URBANO ARECHIGA MD [Staff Physician] - 3-5 Days (Dr. Arechiga is a neurologist. Please follow-up with him for further evaluation) PRIMARY CARE, [Referring] - 3-5 Days Prescriptions: Butalb/Acetamin/Caff 50-325-40 [Fioricet 50-325-40] 2 tab PO Q8HR PRN #20 tablet PRN Reason: Headache Butalb/Acetamin/Caff 50-325-40 [Fioricet 50-325-40] 2 tab PO TID PRN #10 tablet PRN Reason: headache AtorvaSTATin [Lipitor] 20 mg PO DAILY #30 Amlodipine Besylate/Benazepril [Lotrel 5-10 mg] 5 - 10 mg PO QDAY #30 cap Meloxicam [Mobic] 15 mg PO QDAY #10 Metoclopramide [Reglan TAB] 10 mg PO Q6H PRN #10 tablet PRN Reason: Nausea And Vomiting Metoclopramide [Reglan] 10 mg PO TID #20 tab Rosuvastatin Calcium 20 mg PO QDAY #30 tab traMADoL [Ultram 50 MG tab] 50 mg PO QDAY #6
[2021-12-03] MEDS ORDERED: FLUTICASONE PROPIONATE NASAL SPRAY 16 GM NS SCH (10:00)
[2021-12-03] MEDS ORDERED: AMLODIPINE BESYLATE PO SCH (10:00)
[2021-12-03] MEDS ORDERED: ROSUVASTATIN CALCIUM 20 MG PO SCH (10:00)
[2021-12-03] MEDS ORDERED: BENAZEPRIL PO SCH (10:00)
[2021-12-03] MEDS ORDERED: MONTELUKAST 10 MG TAB PO SCH (10:00)
[2021-12-03] MEDS ORDERED: NON-FORMULARY EACH (Januvia 50 MG) PO SCH (10:00)
[2021-12-03] MEDS: amLODIPine 5 MG TAB PO SCH (10:34)
[2021-12-03] MEDS: ASPIRIN EC 325 MG TAB PO SCH (10:34)
[2021-12-03] MEDS: INSULIN LISPRO 100 UNIT/ML SUB-Q SCH (10:40)
[2021-12-03] MEDS: LISINOPRIL 10 MG TAB PO SCH (10:41)
[2021-12-03 12:38] VITALS: BP 177/96
== END 2021-12-03 13:16 | disposition home or self-care (01) ==
LOC: ED 16:01 → INTOOBSV 21:57 → 4A 21:57
PROVIDERS: ADMIT Internal Medicine Geriatric Medicine; ATTEND Hospitalist
DX: I24.9 Acute ischemic heart disease, unspecified (principal); R51.9 Headache, unspecified; I10 Essential (primary) hypertension; E11.65 Type 2 diabetes mellitus with hyperglycemia; R07.89 Other chest pain; R11.0 Nausea; M54.9 Dorsalgia, unspecified; R42 Dizziness and giddiness; R11.2 Nausea with vomiting, unspecified; Z79.899 Other long term (current) drug therapy; Z98.890 Other specified postprocedural states; Z79.4 Long term (current) use of insulin; Z79.82 Long term (current) use of aspirin
CPT/HCPCS: 36415; 70450; 71045; 80048; 82550; 82553; 82962; 84484; 85025; 93005; 93880; 96372; 96374; 96375; 99285; G0378; J1644; J2405; J2765; J3010; 85007; Q9967; J1815